=== PATIENT | female | born 1980 | race Hispanic/Latino ===

== ENCOUNTER → 2023-08-03 | Outpatient (CLI) | payer BC | END | disposition home or self-care (01) | LOC: RAH 08:30 | PROVIDERS: ATTEND Family Medicine | DX: M77.32 Calcaneal spur, left foot (principal); M25.572 Pain in left ankle and joints of left foot | CPT/HCPCS: 73590; 73610 ==

== ENCOUNTER → 2023-08-13 | Outpatient (CLI) | payer BC | END | disposition home or self-care (01) | LOC: RAH 08:23 | PROVIDERS: ATTEND Family Medicine | DX: Z12.31 Encounter for screening mammogram for malignant neoplasm of breast (principal); R22.42 Localized swelling, mass and lump, left lower limb; I70.0 Atherosclerosis of aorta | CPT/HCPCS: 77067; 93926; 93971 ==